=== PATIENT | female | born 1980 | race Two or more races ===

== ENCOUNTER 2020-06-26 02:51 | Emergency (ER) | payer SELFPAY ==
[~2020-06-26] VITALS: Ht 152.4 cm; Wt 90.7 kg
--- NOTE | 2020-06-26 03:00 | NUR ---
ED Nurse Note: Patient brought in by ambulance [facility] 829 from home with c/o anxiety and ETOH. Pts sister witnessed patient strangling herself with iphone charge. PD at bedside and placed patient on 5150. No visible wound/laceration noted.
--- NOTE | 2020-06-26 03:06 | Emergency Room Report ---
History of Present Illness General Chief Complaint: Behavioral Complaint Source: Patient (Peter De Oliveira MD) Present Illness HPI Patient is a 29-year-old female who presents after reported attempt at self injury. Patient reportedly had attempted to harm herself with a charging cord. Prior history of major depressive disorder. Patient denies any attempt at harming herself. She states that she had multiple alcoholic drinks earlier in the day. She does state that she is unsure if she is . Had previously been on venlafaxine due to psychiatric illness and states that she had previously been on psychiatric hold in the past. Denies any suicidal thoughts. (Peter De Oliveira MD) Allergies: Coded Allergies: No Known Allergies (Unverified , 06/26/20) COVID-19 Screening COVID-19 risk:Contact w/high r: No Has patient experienced saucedo: No COVID-19 Testing performed IMMIGRATION INSPECTOR: No (Peter De Oliveira MD) Patient History Past Medical History: see triage record Now: No Reviewed Nursing Documentation: PMH: Agreed; PSxH: Agreed (Peter De Oliveira MD) Nursing Documentation-PMH Past Medical History: No History, Except For History Of Psychiatric Problem: Yes (Peter De Oliveira MD) Review of Systems All Other Systems: negative except mentioned in HPI (Peter De Oliveira MD) Physical Exam Vital Signs Date Time Temp Pulse Resp B/P (MAP) Pulse Ox O2 Delivery O2 Flow Rate FiO2 06/26/20 02:53 97.9 120 24 107/78 (88) 99 Room Air Sp02 EP Interpretation: reviewed, normal General Appearance: alert/responsive, no apparent distress, GCS 15, non-toxic Head: atraumatic Eyes: PERRL, lids + conjunctiva normal ENT: hearing intact, no angioedema Neck: supple/symm/no masses, no meningismus Respiratory: effort normal, no wheezing, chest symmetrical Cardiovascular: regular rate, rhythm, no edema Cardiovascular #2: 2+ carotid (R), 2+ carotid (L), 2+ dorsalis pedis (R), 2+ dorsalis pedis (L) Gastrointestinal: non-tender, no mass, non-distended, no rebound/guarding, normal bowel sounds Musculoskeletal: gait & station normal, normal ROM, strength & tone normal, non -tender Neurologic: normal inspection, CN II-XII intact, oriented x3, sensory intact, normal speech Psychiatric: normal inspection, judgment & insight normal, mood normal, no suicidal/homicidal ideation, no delusions Skin: no rash, well hydrated Lymphatic: normal inspection (Peter De Oliveira MD) Medical Decision Making Restraint Attestation I, Peter De Oliveira MD, have personally evaluated this patient. Laboratory tests have been reviewed and addressed accordingly. The patient is deemed to present a danger to themselves and/or others. This is based on the exam, history ( provided by patient, EMS/[facility] and/or family) and observed or reported behavior. Attempts for non-invasive measures have been considered and/or attempted, however, have been futile. It is in the best interest of the nursing staff, the patient, and others involved in this patient's care that behavioral restraints be applied. Patient evaluation reveals the following: Patient attempting to injure herself with cable. (Peter De Oliveira MD) Diagnostic Impression: Primary Impression: Acute stress reaction Additional Impression: Alcohol abuse ER Course Patient presented for reported self injury. Differential diagnosis include was not limited to alcohol intoxication, depression, psychosis among others. Because of complexity of patient's case laboratory tests and studies were ordered. Patient was placed on a psychiatric hold by police. Patient reportedly had been drinking alcohol and is likely at least somewhat intoxicated with alcohol currently. On direct questioning patient denies any current suicidal thoughts. Patient will be medically cleared for psychiatric placement. Per nursing staff patient had taken some cabling in the room and attempted to wrap this around her neck. Patient was subsequently placed in restraints. Patient's blood alcohol was noted be greater than 160. Urine drug screen was positive for amphetamine and marijuana. Repeat laboratory testing will be ordered and patient will be medically cleared for psychiatric placement. Labs Test 06/26/20 03:54 White Blood Count 11.3 K/UL (4.8-10.8) Red Blood Count 4.42 M/UL (4.20-5.40) Hemoglobin 14.9 G/DL (12.0-16.0) Hematocrit 41.7 % (37.0-47.0) Mean Corpuscular Volume 94 FL (80-99) Mean Corpuscular Hemoglobin 33.6 PG (27.0-31.0) Mean Corpuscular Hemoglobin Concent 35.7 G/DL (32.0-36.0) Red Cell Distribution Width 10.7 % (11.6-14.8) Platelet Count 263 K/UL (150-450) Mean Platelet Volume 8.7 FL (6.5-10.1) Neutrophils (%) (Auto) 57.2 % (45.0-75.0) Lymphocytes (%) (Auto) 34.3 % (20.0-45.0) Monocytes (%) (Auto) 6.4 % (1.0-10.0) Eosinophils (%) (Auto) 0.8 % (0.0-3.0) Basophils (%) (Auto) 1.2 % (0.0-2.0) Urine Color Pale yellow Urine Appearance Clear Urine pH 5 (4.5-8.0) Urine Specific Hennessey 1.010 (1.005-1.035) Urine Protein Negative (NEGATIVE) Urine Glucose (UA) Negative (NEGATIVE) Urine Ketones Negative (NEGATIVE) Urine Blood Negative (NEGATIVE) Urine Nitrite Negative (NEGATIVE) Urine Bilirubin Negative (NEGATIVE) Urine Urobilinogen Normal MG/DL (0.0-1.0) Urine Leukocyte Esterase Negative (NEGATIVE) Urine HCG, Qualitative Negative (NEGATIVE) Sodium Level 140 MMOL/L (136-145) Potassium Level 3.1 MMOL/L (3.5-5.1) Chloride Level 105 MMOL/L (98-107) Carbon Dioxide Level 23 MMOL/L (21-32) Anion Gap 12 mmol/L (5-15) Blood Urea Nitrogen 7 mg/dL (7-18) Creatinine 0.8 MG/DL (0.55-1.30) Estimat Glomerular Filtration Rate > 60 mL/min (>60) Glucose Level 94 MG/DL (74-106) Calcium Level 8.9 MG/DL (8.5-10.1) Total Bilirubin 0.4 MG/DL (0.2-1.0) Aspartate Amino Transf (AST/SGOT) 19 U/L (15-37) Alanine Aminotransferase (ALT/SGPT) 30 U/L (12-78) Alkaline Phosphatase 58 U/L (46-116) Total Protein 7.4 G/DL (6.4-8.2) Albumin 3.7 G/DL (3.4-5.0) Globulin 3.7 g/dL Albumin/Globulin Ratio 1.0 (1.0-2.7) Salicylates Level 1.1 ug/mL (2.8-20) Urine Opiates Screen Negative (NEGATIVE) Acetaminophen Level < 2 MCG/ML (10-30) Urine Barbiturates Screen Negative (NEGATIVE) Phencyclidine (PCP) Screen Negative (NEGATIVE) Urine Amphetamines Screen Positive (NEGATIVE) Urine Benzodiazepines Screen Negative (NEGATIVE) Urine Cocaine Screen Negative (NEGATIVE) Urine Marijuana (THC) Screen Positive (NEGATIVE) Serum Alcohol 169 mg/dL (Peter De Oliveira MD) ER Course Patient signed out to me pending psychiatric evaluation. She had been placed on a 5150 hold last night. Patient was intoxicated became angry with the family member and wrapped a phone director of sustainable design around her neck. This morning patient was in no acute distress, denied any suicidal homicidal ideations. She was seen by psychiatry, Dr. Doran who lifted the 5150 hold. Patient was given Haldol prior to discharge in addition to her home medications. (Everardo Sargent M.D.) Last Vital Signs Date Time Temp Pulse Resp B/P (MAP) Pulse Ox O2 Delivery O2 Flow Rate FiO2 06/26/20 02:53 97.9 120 24 107/78 (88) 99 Room Air Status: unchanged (Peter De Oliveira MD) Disposition: HOME, SELF-CARE Condition: Stable Peter De Oliveira MD Jun 26, 2020 03:06 Everardo Sargent M.D. Jun 26, 2020 14:32
[2020-06-26] MEDS ORDERED: VENLAFAXINE HCL75 MG ORAL (03:10)
--- NOTE | 2020-06-26 03:10 | NUR ---
ED Nurse Note: Patients surroundings cleared. Monitor cord/ Iv lines removed from patients reach.
[2020-06-26 03:30] VITALS: BP 107/78
--- NOTE | 2020-06-26 03:38 | NUR ---
ED Nurse Note: BELONGINGS LOGGED AND PLACED IN PSYCH LOCKER #3
[2020-06-26 03:57] LABS: APPEARANCE,URINE CLEAR; BILIRUBIN, URINE NEGATIVE (NEGATIVE); COLOR,URINE PALE YELLOW; GLUCOSE, URINE (UA) NEGATIVE (NEGATIVE); KETONES,URINE NEGATIVE (NEGATIVE); LEUKOCYTE ESTERASE ,URINE NEGATIVE (NEGATIVE); NITRITE,URINE NEGATIVE (NEGATIVE); PH,URINE 5 (4.5-8.0); PROTEIN,URINE NEGATIVE (NEGATIVE); UROBILINOGEN,URINE NORMAL MG/DL (0.0-1.0)
--- NOTE | 2020-06-26 04:00 | NUR ---
ED Nurse Note: Patient was anxious and restless. Constant redirection from RN implemented
[2020-06-26 04:07] LABS: ANION GAP 12 mmol/L (5-15); BASOPHILS % (AUTO) 1.2 % (0.0-2.0); BLOOD UREA NITROGEN 7 mg/dL (7-18); CALCIUM 8.9 MG/DL (8.5-10.1); CARBON DIOXIDE 23 MMOL/L (21-32); CHLORIDE 105 MMOL/L (98-107); CREATININE 0.8 MG/DL (0.55-1.30); EOSINOPHILS % (AUTO) 0.8 % (0.0-3.0); HEMATOCRIT 41.7 % (37.0-47.0); HEMOGLOBIN 14.9 G/DL (12.0-16.0); LYMPHOCYTES % (AUTO) 34.3 % (20.0-45.0); MEAN CORPUSCULAR VOLUME 94 FL (80-99); MONOCYTES % (AUTO) 6.4 % (1.0-10.0); NEUTROPHILS % (AUTO) 57.2 % (45.0-75.0); PLATELET COUNT 263 K/UL (150-450); POTASSIUM 3.1 MMOL/L (3.5-5.1); RED BLOOD COUNT 4.42 M/UL (4.20-5.40); RED CELL DISTRIBUTION WIDTH 10.7 % (11.6-14.8); SODIUM 140 MMOL/L (136-145); WHITE BLOOD COUNT 11.3 K/UL (4.8-10.8)
[2020-06-26 04:11] LABS: ALANINE AMINOTRANSFERASE 30 U/L (12-78); ALBUMIN 3.7 G/DL (3.4-5.0); ALKALINE PHOSPHATASE 58 U/L (46-116); ASPARTATE AMINO TRANSFERASE 19 U/L (15-37); BILIRUBIN,TOTAL 0.4 MG/DL (0.2-1.0)
--- NOTE | 2020-06-26 05:00 | NUR ---
ED Nurse Note: Patient is sleeping on bed. Still on continuous monitoring for possible self harm.
[2020-06-26 05:28] VITALS: BP 112/82
--- NOTE | 2020-06-26 05:34 | NUR ---
ED Nurse Note: Alcohol blood serum sent
--- NOTE | 2020-06-26 07:10 | NUR ---
ED Nurse Note: Patient transferred to OB room. Endorsed to JG RUFF. Patient with sitter on bedside
[2020-06-26 07:42] VITALS: BP 111/81
--- NOTE | 2020-06-26 07:42 | NUR ---
ED Nurse Note: Received pt from [facility], pt on bed, asleep, VSS, on RA, no acute distress noted; sitter at bedside.
--- NOTE | 2020-06-26 09:18 | NUR ---
ED Nurse Note: offered breakfast tray but pt refused, pt remained on bed, went back to sleep. sitter at bedside.
--- NOTE | 2020-06-26 09:39 | NUR ---
ED Nurse Note: ARVIND LANGLEY (mother) # ELDER (sister) #
--- NOTE | 2020-06-26 10:14 | NUR ---
ED Nurse Note: pt awake, eating breakfast on bedside; no acute distress noted.
[2020-06-26 10:15] VITALS: BP 114/84
[2020-06-26 12:27] VITALS: BP 116/86
--- NOTE | 2020-06-26 13:50 | NUR ---
ED Nurse Note: Dr. Doran at bedside.
[2020-06-26] MEDS ORDERED: Haloperidol Decanoate (Long Acting) 50mg Inj IM SCH (13:56)
[2020-06-26] MEDS ORDERED: Venlafaxine XR 150mg cap ORAL SCH (13:57)
[2020-06-26] MEDS ORDERED: Venlafaxine 25mg tab ORAL SCH (13:58)
--- NOTE | 2020-06-26 14:00 | NUR ---
5150 hold has been lifted by dr ahuja
[2020-06-26 14:39] VITALS: BP 114/82
--- NOTE | 2020-06-26 14:39 | NUR ---
ER DISCHARGE NOTE: Patient is cleared to be discharged per ERMD, 5150 on-hold lifted by Dr. Doran. pt is aox4, on room air, with stable vital signs. pt was given dc and prescription instructions, pt was able to verbalize understanding, pt id band and iv site removed without complications. pt is able to ambulate with steady gait. pt took all belongings. Pt left ED picked up by family member.
--- NOTE | 2020-06-26 18:15 | Consultation ---
DATE OF CONSULTATION: 06/26/2020 CONSULTING PHYSICIAN: Juliana Doran MD. HISTORY OF PRESENT ILLNESS: This is a 39-year-old female with a history of major depressive disorder and anxiety disorder who has been admitted to the hospital on a 5150. Patient attempted to suffocate herself after she was in an argument with her sister. Patient recently moved from [place] to live with her sister and her boyfriend. Patient is having poor insight into her condition. She is not suicidal or homicidal. Patient is calm. She stated that when she gets frustrated, she tends to suffocate herself. PAST PSYCHIATRY HISTORY: Significant for anxiety, depression. She has been to a psychiatric hospital before. She is on Effexor. She has a psychiatrist in [place]. Currently looking for a psychiatrist here in [place]. PAST MEDICAL HISTORY: Obesity. ALLERGIES: No known drug allergies. SUBSTANCE USE HISTORY: She denied illicit drug use. is positive for cannabis and alcohol. She denied being intoxicated during the "suffocating." Patient denied being intoxicated last night. She has a history of alcohol abuse. MENTAL STATUS EXAMINATION: Alert, oriented times self, place, situation, and date. Mood is anxious. Affect is flat. Thought process concrete. Thought content, no suicidal or homicidal ideation. Cognition is intact. Insight and judgment is fair. ASSESSMENT: Buchanan I Major depressive disorder. Anxiety disorder. Buchanan II Borderline personality. Buchanan III None. Buchanan IV Low. Buchanan V 50. PLAN: 1. Patient will be started on Effexor that she was taking outside of the hospital. 2. Haldol Decanoate. 3. Provide the patient reality orientation and supportive therapy. Juliana Doran M.D. DR: IMTIAZ JOB#: [id number] CC:
== END 2020-06-26 14:39 | disposition home or self-care (01) ==
LOC: EDBD 02:51 → EMR 03:04
DX: F43.0 Acute stress reaction (principal); F10.10 Alcohol abuse, uncomplicated; F32.9 Major depressive disorder, single episode, unspecified; F15.90 Other stimulant use, unspecified, uncomplicated; F12.90 Cannabis use, unspecified, uncomplicated
CPT/HCPCS: 36415; 80053; 80307; 81003; 81025; 85025; 96372; 99285; G0480; J1631; U0002